=== PATIENT | male | born 1955 | race African-American/Black ===

== ENCOUNTER 2018-04-11 18:24 | Inpatient (IN) | payer MEDICAID ==
[~2018-04-11] VITALS: Ht 170.2 cm; Wt 72.3 kg
[2018-04-11 19:38] LABS: HEMATOCRIT. 24.4 % (42.0-52.0); HEMOGLOBIN. 7.9 g/dL (14.0-18.0); MEAN CORPUSCULAR HEMOGLOBIN 27.7 pg (28.0-32.0); MEAN CORPUSCULAR VOLUME 85.2 fL (80.0-94.0); RED BLOOD CELL COUNT 2.86 mill/uL (4.7-6.1); RED CELL DISTRIBUTION WIDTH 18.6 % (11.6-14.6)
[2018-04-11 19:42] LABS: CHLORIDE 96 mEq/L (98-107); INR 1.4; PROTHROMBIN TIME 14.1 sec (9.1-11.1)
[2018-04-11] MEDS ORDERED: ADENOSINE 3 MG/ML 2ML VIAL IV ONE ×2 (19:45→19:51)
[2018-04-11] MEDS ORDERED: LORAZEPAM 2MG/ML CPJ IV ONE (20:00)
[2018-04-11 20:06] LABS: MEAN PLATELET VOLUME 9.4 fl (7.4-10.4)
[2018-04-11 20:08] LABS: PLATELET ESTIMATE MARKEDLY DECREASED
[2018-04-11] MEDS ORDERED: LEVOFLOXACIN 750MG PREMIX 150 ML IV ONE (20:30)
[2018-04-11] MEDS ORDERED: POTASSIUM CHLORIDE 20MEQ TABLET SR PO ONE ×2 (21:00→21:30)
[2018-04-11] MEDS ORDERED: PIPERACILLIN/TAZ 3.375G PREMIX 50 ML IV SCH (21:30)
[2018-04-11] MEDS ORDERED: CLONIDINE 0.1MG TABLET PO PRN (21:30)
[2018-04-11] MEDS ORDERED: DOCUSATE SODIUM 100MG CAPSULE PO PRN (21:30)
[2018-04-11] MEDS ORDERED: ACETAMINOPHEN 325MG TABLET PO PRN (21:30)
[2018-04-11] MEDS ORDERED: ONDANSETRON HCL 4MG/2ML VIAL IV PRN (21:30)
[2018-04-11] MEDS ORDERED: NITROGLYCERIN 0.4MG TABLET SL SL PRN (21:30)
[2018-04-11] MEDS ORDERED: KETOROLAC 15MG/ML VIAL IV PRN (21:30)
[2018-04-11] MEDS ORDERED: NA PHOS,M-B/NA PHOS,DI-BA ENEMA 118ML PR PRN (21:30)
[2018-04-11] MEDS ORDERED: MAGNESIUM/ALUMINUM HYDROXIDE/SIMETHICONE 30ML UDC PO PRN (21:30)
[2018-04-11 21:50] LABS: LDL CHOLESTEROL 22 mg/dL (5-100)
[2018-04-11 21:52] LABS: HDL CHOLESTEROL 7 mg/dL (40-59)
[2018-04-11 22:34] VITALS: BP 87/50
[2018-04-11 23:00] VITALS: BP 87/50
[2018-04-11] MEDS ORDERED: SODIUM CHLORIDE 0.9% 1,000 ML IV SCH (23:00)
[2018-04-11] MEDS ORDERED: NOREPINEPHRINE 4 MG in DEXT 5% WATER 246 ML IV PRN (23:15)
[2018-04-11 23:17] LABS: CREATINE KINASE 26 IU/L (39-308)
[2018-04-11 23:19] LABS: CREATINE KINASE MB FRACTION < 1.0 ng/mL (0.5-3.6)
[2018-04-11 23:30] VITALS: BP 86/51
[2018-04-11 23:38] VITALS: BP 91/53
[2018-04-11] MEDS: SODIUM CHLORIDE 0.9% 1,000 ML IV SCH (23:42)
[2018-04-12] VITALS (49 sets, daily range): BP systolic 76–131; BP diastolic 43–79
[2018-04-12] MEDS ORDERED: VANCOMYCIN 1 G PREMIX 200 ML IV NR
[2018-04-12] MEDS: PIPERACILLIN/TAZ 3.375G PREMIX 50 ML IV SCH ×4 (01:01→21:15)
[2018-04-12] MEDS: ALBUMIN HUMAN 25GM/100ML (25%) IV SCH ×3 (02:21→17:57)
[2018-04-12] MEDS: GUAIFENESIN 200MG/10ML SUGAR FREE UDC PO PRN ×2 (03:19→23:54)
[2018-04-12] MEDS: IPRATROPIUM/ALBUTEROL 0.5-3(2.5)MG/3ML NEB INH PRN ×2 (04:16→12:10)
[2018-04-12 05:43] LABS: CREATINE KINASE 30 IU/L (39-308)
[2018-04-12 05:45] LABS: CREATINE KINASE MB FRACTION < 1.0 ng/mL (0.5-3.6)
[2018-04-12] MEDS: DILTIAZEM HCL 60MG TABLET PO SCH ×2 (06:00)
[2018-04-12 08:07] LABS: MEAN CORPUSCULAR HEMOGLOBIN 28.3 pg (28.0-32.0); MEAN CORPUSCULAR VOLUME 84.8 fL (80.0-94.0); MEAN PLATELET VOLUME 8.6 fl (7.4-10.4); RED BLOOD CELL COUNT 2.39 mill/uL (4.7-6.1); RED CELL DISTRIBUTION WIDTH 18.4 % (11.6-14.6)
[2018-04-12 08:08] LABS: CHLORIDE 98 mEq/L (98-107)
[2018-04-12 08:19] LABS: HEMATOCRIT. 20.3 % (42.0-52.0); HEMOGLOBIN. 6.8 g/dL (14.0-18.0)
[2018-04-12] MEDS ORDERED: ASPIRIN 325MG EC TABLET PO SCH (09:00)
[2018-04-12] MEDS: FAMOTIDINE 20MG TABLET PO SCH ×2 (09:46→21:15)
[2018-04-12] MEDS: ASCORBIC ACID 500 MG TABLET PO SCH ×2 (09:47→21:15)
[2018-04-12] MEDS: VANCOMYCIN 1250MG in DEXTROSE 5% WATER 250ML IV SCH ×2 (09:47→21:15)
[2018-04-12 10:06] LABS: PLATELET 22 x1000/uL (130-400); PLATELET ESTIMATE MARKEDLY DECREASED
[2018-04-12] MEDS ORDERED: LORAZEPAM 2MG/ML CPJ IV PRN (11:45)
[2018-04-12] MEDS: HYDROMORPHONE HCL/PF 2MG/ML CPJ IV PRN ×3 (11:53→18:03)
[2018-04-12 12:02] LABS: HEPATITIS B SURFACE ANTIGEN NEGATIVE
[2018-04-12 12:30] LABS: HEPATITIS B CORE AB IGM NEGATIVE
[2018-04-12 12:31] LABS: HEPATITIS A AB IGM NEGATIVE (NEGATIVE)
[2018-04-12] MEDS: DIPHENHYDRAMINE 50MG/ML VIAL IV PRN ×3 (12:52→23:22)
[2018-04-12 13:28] LABS: PLATELET 40 x1000/uL (130-400)
[2018-04-12] MEDS: DILTIAZEM HCL 30MG TABLET PO SCH ×2 (14:30→22:00)
[2018-04-12 17:22] LABS: HEMATOCRIT 24.5 % (42.0-52.0); HEMOGLOBIN 8.2 g/dL (14.0-18.0)
[2018-04-12] MEDS: SODIUM HYPOCHLORITE 0.125% 473ML SOLUTION TOP SCH (21:14)
[2018-04-12] MEDS: ZOLPIDEM TARTRATE 5MG TABLET PO PRN (21:15)
[2018-04-12] MEDS: SODIUM CHLORIDE 0.9% 1,000 ML IV SCH (21:17)
[2018-04-13] VITALS (31 sets, daily range): BP systolic 96–138; BP diastolic 50–88
[2018-04-13] MEDS: IPRATROPIUM/ALBUTEROL 0.5-3(2.5)MG/3ML NEB INH PRN
[2018-04-13 05:45] LABS: HEMATOCRIT. 22.8 % (42.0-52.0); HEMOGLOBIN. 7.5 g/dL (14.0-18.0); MEAN CORPUSCULAR HEMOGLOBIN 27.8 pg (28.0-32.0); MEAN CORPUSCULAR VOLUME 83.9 fL (80.0-94.0); MEAN PLATELET VOLUME 9.2 fl (7.4-10.4); RED BLOOD CELL COUNT 2.71 mill/uL (4.7-6.1); RED CELL DISTRIBUTION WIDTH 18.1 % (11.6-14.6)
[2018-04-13 05:52] LABS: CHLORIDE 99 mEq/L (98-107)
[2018-04-13] MEDS: DILTIAZEM HCL 30MG TABLET PO SCH ×3 (06:00→20:51)
[2018-04-13] MEDS: SODIUM HYPOCHLORITE 0.125% 473ML SOLUTION TOP SCH ×2 (06:05→18:14)
[2018-04-13] MEDS: PIPERACILLIN/TAZ 3.375G PREMIX 50 ML IV SCH ×3 (06:05→20:51)
[2018-04-13 06:22] LABS: PLATELET 23 x1000/uL (130-400)
[2018-04-13] MEDS: FAMOTIDINE 20MG TABLET PO SCH ×2 (09:21→20:51)
[2018-04-13] MEDS: ASCORBIC ACID 500 MG TABLET PO SCH ×2 (09:21→20:50)
[2018-04-13] MEDS: GUAIFENESIN 200MG/10ML SUGAR FREE UDC PO PRN (09:21)
[2018-04-13] MEDS: GUAIFENESIN 600MG ER TABLET PO SCH ×2 (09:21→20:50)
[2018-04-13] MEDS: VANCOMYCIN 1250MG in DEXTROSE 5% WATER 250ML IV SCH ×2 (09:21→20:51)
[2018-04-13 10:08] LABS: HIV SCREEN 4G Non Reactive (Non Reactive)
[2018-04-13] MEDS ORDERED: FUROSEMIDE 40MG/4ML VIAL IVP NR (10:30)
[2018-04-13] MEDS: SODIUM CHLORIDE 0.9% 1,000 ML IV SCH ×2 (11:00→15:08)
[2018-04-13 11:13] LABS: PLATELET ESTIMATE MARKEDLY INCREASED
[2018-04-13] MEDS: HYDROMORPHONE HCL/PF 2MG/ML CPJ IV PRN ×2 (12:18→21:05)
[2018-04-13] MEDS: IPRATROPIUM BROMIDE (0.02%) 0.5MG/2.5ML NEB HHN SCH ×2 (12:28→20:50)
[2018-04-13 14:23] LABS: CLARITY URINE CLEAR (CLEAR); COLOR URINE YELLOW (YELLOW); KETONES URINE NEGATIVE (NEGATIVE); LEUKOCYTE ESTERASE URINE NEGATIVE (NEGATIVE); NITRITE URINE NEGATIVE (NEGATIVE); OCCULT BLOOD URINE NEGATIVE (NEGATIVE); PH URINE 6.5 (4.5-8.0); PROTEIN URINE TRACE (NEGATIVE); SPECIFIC GRAVITY URINE 1.016 (1.005-1.030)
[2018-04-13 15:09] LABS: *AMPHETAMINES SCREEN URINE NEGATIVE (NEGATIVE)
[2018-04-13 15:10] LABS: *BARBITURATES SCREEN URINE NEGATIVE (NEGATIVE); *COCAINE SCREEN URINE NEGATIVE (NEGATIVE); CANNABINOID URINE SCREEN NEGATIVE (NEGATIVE); PHENCYCLIDINE URINE SCREEN NEGATIVE (NEGATIVE)
[2018-04-13 15:11] LABS: *BENZODIAZEPINES SCREEN URINE NEGATIVE (NEGATIVE); METHADONE URINE SCREEN NEGATIVE (NEGATIVE); OPIATES URINE SCREEN PRESUMTIVE POSITIVE (NEGATIVE)
[2018-04-14] VITALS (13 sets, daily range): BP systolic 77–137; BP diastolic 43–84
[2018-04-14] MEDS: HYDROMORPHONE HCL/PF 2MG/ML CPJ IV PRN ×4 (00:37→20:48)
[2018-04-14] MEDS: IPRATROPIUM BROMIDE (0.02%) 0.5MG/2.5ML NEB HHN SCH ×4 (02:00→20:46)
[2018-04-14] MEDS: PIPERACILLIN/TAZ 3.375G PREMIX 50 ML IV SCH ×4 (02:10→20:46)
[2018-04-14] MEDS: ZOLPIDEM TARTRATE 5MG TABLET PO PRN ×2 (02:16→20:47)
[2018-04-14] MEDS: SODIUM HYPOCHLORITE 0.125% 473ML SOLUTION TOP SCH ×2 (04:55→18:00)
[2018-04-14] MEDS: DILTIAZEM HCL 30MG TABLET PO SCH (05:23)
[2018-04-14 07:20] LABS: HEMATOCRIT. 26.2 % (42.0-52.0); HEMOGLOBIN. 8.6 g/dL (14.0-18.0); MEAN CORPUSCULAR HEMOGLOBIN 27.8 pg (28.0-32.0); MEAN CORPUSCULAR VOLUME 84.6 fL (80.0-94.0); MEAN PLATELET VOLUME 9.1 fl (7.4-10.4); RED BLOOD CELL COUNT 3.09 mill/uL (4.7-6.1); RED CELL DISTRIBUTION WIDTH 17.7 % (11.6-14.6)
[2018-04-14 07:27] LABS: PLATELET 21 x1000/uL (130-400)
[2018-04-14 08:15] LABS: CHLORIDE 97 mEq/L (98-107)
[2018-04-14] MEDS: GUAIFENESIN 600MG ER TABLET PO SCH ×2 (08:20→20:53)
[2018-04-14] MEDS: METOPROLOL TARTRATE 25MG TABLET PO SCH ×2 (08:20→21:00)
[2018-04-14] MEDS: FAMOTIDINE 20MG TABLET PO SCH ×2 (08:20→20:47)
[2018-04-14] MEDS: ASCORBIC ACID 500 MG TABLET PO SCH ×2 (08:20→20:47)
[2018-04-14] MEDS: FUROSEMIDE 20MG/2ML VIAL IVP SCH (08:21)
[2018-04-14] MEDS: VANCOMYCIN 1250MG in DEXTROSE 5% WATER 250ML IV SCH ×2 (09:25→21:49)
[2018-04-14 09:43] LABS: PLATELET ESTIMATE MARKEDLY DECREASED
[2018-04-14] MEDS: GUAIFENESIN 200MG/10ML SUGAR FREE UDC PO PRN (20:46)
[2018-04-15] VITALS (12 sets, daily range): BP systolic 87–102; BP diastolic 45–60
[2018-04-15] MEDS: IPRATROPIUM BROMIDE (0.02%) 0.5MG/2.5ML NEB HHN SCH ×4 (01:34→20:44)
[2018-04-15] MEDS: PIPERACILLIN/TAZ 3.375G PREMIX 50 ML IV SCH ×4 (01:39→20:23)
[2018-04-15] MEDS: DIPHENHYDRAMINE 50MG/ML VIAL IV PRN ×2 (01:49→22:17)
[2018-04-15] MEDS: TRAMADOL 50MG TABLET PO PRN (01:51)
[2018-04-15] MEDS: SODIUM HYPOCHLORITE 0.125% 473ML SOLUTION TOP SCH ×2 (05:48→17:37)
[2018-04-15 07:44] LABS: HEMATOCRIT. 25.5 % (42.0-52.0); HEMOGLOBIN. 8.5 g/dL (14.0-18.0); MEAN CORPUSCULAR HEMOGLOBIN 27.9 pg (28.0-32.0); MEAN PLATELET VOLUME 8.5 fl (7.4-10.4); RED BLOOD CELL COUNT 3.04 mill/uL (4.7-6.1); RED CELL DISTRIBUTION WIDTH 17.6 % (11.6-14.6)
[2018-04-15 08:17] LABS: CHLORIDE 96 mEq/L (98-107)
[2018-04-15 08:19] LABS: PLATELET 20 x1000/uL (130-400)
[2018-04-15] MEDS: FUROSEMIDE 20MG/2ML VIAL IVP SCH ×2 (08:26→09:20)
[2018-04-15] MEDS: FAMOTIDINE 20MG TABLET PO SCH ×2 (08:26→20:54)
[2018-04-15] MEDS: ASCORBIC ACID 500 MG TABLET PO SCH ×2 (08:26→20:55)
[2018-04-15] MEDS: GUAIFENESIN 600MG ER TABLET PO SCH ×2 (08:26→20:54)
[2018-04-15] MEDS: METOPROLOL TARTRATE 25MG TABLET PO SCH ×2 (08:27→20:48)
[2018-04-15] MEDS: VANCOMYCIN 1250MG in DEXTROSE 5% WATER 250ML IV SCH ×2 (08:27→21:08)
[2018-04-15 17:48] LABS: ATYPICAL LYMPHOCYTES 1
[2018-04-15 17:49] LABS: PLATELET ESTIMATE MARKEDLY DECREASED
[2018-04-15] MEDS: HYDROMORPHONE HCL/PF 2MG/ML CPJ IV PRN (18:00)
[2018-04-15] MEDS: ZOLPIDEM TARTRATE 5MG TABLET PO PRN (20:54)
[2018-04-15] MEDS: GUAIFENESIN 200MG/10ML SUGAR FREE UDC PO PRN (21:50)
[2018-04-16] VITALS (12 sets, daily range): BP systolic 86–107; BP diastolic 47–67
[2018-04-16] MEDS: IPRATROPIUM BROMIDE (0.02%) 0.5MG/2.5ML NEB HHN SCH ×4 (01:06→20:29)
[2018-04-16] MEDS: PIPERACILLIN/TAZ 3.375G PREMIX 50 ML IV SCH ×4 (01:26→21:07)
[2018-04-16] MEDS: HYDROMORPHONE HCL/PF 2MG/ML CPJ IV PRN ×2 (05:44→09:49)
[2018-04-16] MEDS: SODIUM HYPOCHLORITE 0.125% 473ML SOLUTION TOP SCH ×2 (05:48→18:49)
[2018-04-16] MEDS: METOPROLOL TARTRATE 25MG TABLET PO SCH ×2 (09:00→20:50)
[2018-04-16] MEDS: FAMOTIDINE 20MG TABLET PO SCH ×2 (09:31→21:07)
[2018-04-16] MEDS: GUAIFENESIN 200MG/10ML SUGAR FREE UDC PO PRN (09:31)
[2018-04-16] MEDS: ASCORBIC ACID 500 MG TABLET PO SCH ×2 (09:31→21:07)
[2018-04-16] MEDS: VANCOMYCIN 1250MG in DEXTROSE 5% WATER 250ML IV SCH ×2 (09:47→21:52)
[2018-04-16] MEDS: GUAIFENESIN 600MG ER TABLET PO SCH ×2 (09:47→21:07)
[2018-04-16] MEDS ORDERED: MAGNESIUM SULFATE 2 GM in DEXTROSE 5% WATER 50 ML IV NR (17:00)
[2018-04-16] MEDS: ZOLPIDEM TARTRATE 5MG TABLET PO PRN (21:07)
[2018-04-16] MEDS: TRAMADOL 50MG TABLET PO PRN (21:07)
[2018-04-17] VITALS (13 sets, daily range): BP systolic 88–114; BP diastolic 51–70
[2018-04-17] MEDS: PIPERACILLIN/TAZ 3.375G PREMIX 50 ML IV SCH ×4 (01:58→22:05)
[2018-04-17] MEDS: IPRATROPIUM BROMIDE (0.02%) 0.5MG/2.5ML NEB HHN SCH ×4 (02:00→21:12)
[2018-04-17] MEDS: DIPHENHYDRAMINE 50MG/ML VIAL IV PRN ×2 (05:13→15:23)
[2018-04-17] MEDS: SODIUM HYPOCHLORITE 0.125% 473ML SOLUTION TOP SCH ×2 (06:00→18:00)
[2018-04-17] MEDS: GUAIFENESIN 600MG ER TABLET PO SCH ×2 (08:51→20:37)
[2018-04-17] MEDS: ASCORBIC ACID 500 MG TABLET PO SCH ×3 (08:51→20:37)
[2018-04-17] MEDS: FUROSEMIDE 20MG/2ML VIAL IVP SCH ×2 (08:51→09:00)
[2018-04-17] MEDS: FAMOTIDINE 20MG TABLET PO SCH ×2 (08:51→20:37)
[2018-04-17] MEDS: METOPROLOL TARTRATE 25MG TABLET PO SCH ×2 (08:52→20:41)
[2018-04-17] MEDS: VANCOMYCIN 1250MG in DEXTROSE 5% WATER 250ML IV SCH ×2 (08:58→22:05)
[2018-04-17] MEDS ORDERED: KETOROLAC 15MG/ML VIAL IV PRN (18:30)
[2018-04-17] MEDS ORDERED: ZOLPIDEM TARTRATE 5MG TABLET PO PRN (18:30)
[2018-04-17] MEDS: TRAMADOL 50MG TABLET PO PRN (20:41)
[2018-04-18] VITALS (12 sets, daily range): BP systolic 93–114; BP diastolic 48–76
[2018-04-18] MEDS: IPRATROPIUM BROMIDE (0.02%) 0.5MG/2.5ML NEB HHN SCH ×5 (01:09→23:00)
[2018-04-18] MEDS: PIPERACILLIN/TAZ 3.375G PREMIX 50 ML IV SCH ×4 (03:14→20:03)
[2018-04-18] MEDS: SODIUM HYPOCHLORITE 0.125% 473ML SOLUTION TOP SCH ×2 (05:12→18:00)
[2018-04-18] MEDS: DIPHENHYDRAMINE 50MG/ML VIAL IV PRN (05:13)
[2018-04-18 06:26] LABS: HEMATOCRIT. 25.7 % (42.0-52.0); HEMOGLOBIN. 8.7 g/dL (14.0-18.0); MEAN CORPUSCULAR HEMOGLOBIN 28.7 pg (28.0-32.0); MEAN CORPUSCULAR VOLUME 84.6 fL (80.0-94.0); MEAN PLATELET VOLUME 8.7 fl (7.4-10.4); RED BLOOD CELL COUNT 3.03 mill/uL (4.7-6.1)
[2018-04-18 06:30] LABS: PLATELET 24 x1000/uL (130-400)
[2018-04-18 06:33] LABS: CHLORIDE 100 mEq/L (98-107)
[2018-04-18] MEDS: FAMOTIDINE 20MG TABLET PO SCH ×2 (08:11→20:02)
[2018-04-18] MEDS: GUAIFENESIN 600MG ER TABLET PO SCH ×2 (08:11→20:02)
[2018-04-18] MEDS: ASCORBIC ACID 500 MG TABLET PO SCH ×2 (08:11→20:02)
[2018-04-18] MEDS: VANCOMYCIN 1250MG in DEXTROSE 5% WATER 250ML IV SCH ×2 (08:12→20:03)
[2018-04-18] MEDS: METOPROLOL TARTRATE 25MG TABLET PO SCH ×2 (08:23→20:03)
[2018-04-18] MEDS: FUROSEMIDE 20MG/2ML VIAL IVP SCH (08:23)
[2018-04-18 12:51] LABS: BG BASE EXCESS 3.4 mmol/L (-2.0-2.0); BG CARBOXYHEMOGLOBIN 0.8 % (0.5-1.5); BG DEOXYHEMOGLOBIN 4.6 % (0.0-5.0); BG FRACTION INSPIRED OXYGEN 32; BG HCO3 ACT 27.3 mmol/L (22.0-26.0); BG METHEMOGLOBIN 0.4 % (0.0-1.5); BG OXYGEN SATURATION 95.3 % (92.0-98.5); BG OXYHEMOGLOBIN 94.2 % (94.0-97.0); BG PCO2 38.7 mmHg (35.0-45.0); BG PH 7.467 (7.350-7.450); BG PO2 80.5 mmHg (75.0-100.0); BG SAMPLE SITE LEFT BRACHIAL; BG TOTAL HEMOGLOBIN 7.7 g/dL (12.0-18.0); BG VENT MODE NASAL CANNULA
[2018-04-18] MEDS ORDERED: POTASSIUM CHLORIDE 20MEQ TABLET SR PO SCH (14:00)
[2018-04-18] MEDS: TRAMADOL 50MG TABLET PO PRN (14:24)
[2018-04-18] MEDS ORDERED: TRAMADOL 50MG TABLET PO PRN (16:45)
[2018-04-18] MEDS ORDERED: HYDROMORPHONE HCL/PF 2MG/ML CPJ IV PRN (16:45)
[2018-04-18] MEDS ORDERED: LORAZEPAM 2MG/ML CPJ IV PRN (16:45)
[2018-04-18] MEDS ORDERED: KETOROLAC 15MG/ML VIAL IV PRN (16:45)
[2018-04-18 19:44] LABS: PLATELET ESTIMATE MARKEDLY DECREASED
[2018-04-18] MEDS ORDERED: ZOLPIDEM TARTRATE 5MG TABLET PO PRN (21:00)
[2018-04-18] MEDS: GUAIFENESIN 200MG/10ML SUGAR FREE UDC PO PRN (22:39)
[2018-04-18] MEDS: ZOLPIDEM TARTRATE 5MG TABLET PO PRN (22:40)
[2018-04-19] VITALS (18 sets, daily range): BP systolic 89–111; BP diastolic 43–66
[2018-04-19] MEDS: IPRATROPIUM BROMIDE (0.02%) 0.5MG/2.5ML NEB HHN SCH ×4 (00:59→21:00)
[2018-04-19] MEDS: SODIUM HYPOCHLORITE 0.125% 473ML SOLUTION TOP SCH ×2 (06:46→18:00)
[2018-04-19] MEDS: FUROSEMIDE 20MG/2ML VIAL IVP SCH (08:32)
[2018-04-19] MEDS: FAMOTIDINE 20MG TABLET PO SCH ×2 (08:32→20:28)
[2018-04-19] MEDS: GUAIFENESIN 600MG ER TABLET PO SCH ×2 (08:32→20:28)
[2018-04-19] MEDS: ASCORBIC ACID 500 MG TABLET PO SCH ×2 (08:32→20:28)
[2018-04-19] MEDS: METOPROLOL TARTRATE 25MG TABLET PO SCH ×2 (08:33→20:28)
[2018-04-19] MEDS: TRAMADOL 50MG TABLET PO PRN ×2 (13:03→23:01)
[2018-04-19] MEDS: ZOLPIDEM TARTRATE 5MG TABLET PO PRN (22:34)
[2018-04-20] VITALS (16 sets, daily range): BP systolic 78–129; BP diastolic 45–76
[2018-04-20] MEDS: IPRATROPIUM BROMIDE (0.02%) 0.5MG/2.5ML NEB HHN SCH ×4 (00:57→14:51)
[2018-04-20] MEDS: DIPHENHYDRAMINE 50MG/ML VIAL IV PRN ×2 (03:11→12:12)
[2018-04-20] MEDS: SODIUM HYPOCHLORITE 0.125% 473ML SOLUTION TOP SCH ×3 (03:13→17:13)
[2018-04-20] MEDS: METOPROLOL TARTRATE 25MG TABLET PO SCH ×2 (08:35→21:00)
[2018-04-20] MEDS: FAMOTIDINE 20MG TABLET PO SCH ×2 (08:43→22:17)
[2018-04-20] MEDS: ASCORBIC ACID 500 MG TABLET PO SCH ×2 (08:43→22:17)
[2018-04-20] MEDS: FUROSEMIDE 20MG/2ML VIAL IVP SCH (08:43)
[2018-04-20] MEDS: GUAIFENESIN 600MG ER TABLET PO SCH ×2 (08:43→22:17)
[2018-04-20] MEDS: TRAMADOL 50MG TABLET PO PRN (12:05)
[2018-04-20] MEDS ORDERED: DIGOXIN 500MCG/2ML AMP IV SCH (18:45)
[2018-04-20] MEDS ORDERED: VERAPAMIL HCL 2.5 MG/1 ML 2ML VIAL IV SCH (19:00)
[2018-04-20] MEDS ORDERED: AMIODARONE HCL 900 MG in DEXT 5% WATER 482 ML IV ONE (21:00)
[2018-04-20] MEDS ORDERED: DIGOXIN 500MCG/2ML AMP IV NR (21:02)
[2018-04-20] MEDS ORDERED: AMIODARONE HCL 900 MG in DEXT 5% WATER 482 ML IV PRN (21:30)
[2018-04-20] MEDS ORDERED: AMIODARONE HCL 150 MG in DEXT 5% WATER 100 ML IV NR (21:45)
[2018-04-21] VITALS (37 sets, daily range): BP systolic 86–118; BP diastolic 49–68
[2018-04-21] MEDS: SODIUM HYPOCHLORITE 0.125% 473ML SOLUTION TOP SCH ×2 (06:00→17:09)
[2018-04-21 06:26] LABS: CHLORIDE 100 mEq/L (98-107)
[2018-04-21 07:09] LABS: MEAN CORPUSCULAR HEMOGLOBIN 27.7 pg (28.0-32.0); MEAN CORPUSCULAR VOLUME 84.1 fL (80.0-94.0); MEAN PLATELET VOLUME 8.5 fl (7.4-10.4); RED BLOOD CELL COUNT 2.27 mill/uL (4.7-6.1); RED CELL DISTRIBUTION WIDTH 17.7 % (11.6-14.6)
[2018-04-21 07:11] LABS: CREATINE KINASE MB FRACTION < 1.0 ng/mL (0.5-3.6)
[2018-04-21] MEDS: IPRATROPIUM BROMIDE (0.02%) 0.5MG/2.5ML NEB HHN SCH ×3 (07:49→20:00)
[2018-04-21] MEDS: GUAIFENESIN 600MG ER TABLET PO SCH ×2 (08:52→20:52)
[2018-04-21] MEDS: FUROSEMIDE 20MG/2ML VIAL IVP SCH (08:56)
[2018-04-21] MEDS: METOPROLOL TARTRATE 25MG TABLET PO SCH (08:56)
[2018-04-21] MEDS: FAMOTIDINE 20MG TABLET PO SCH ×2 (08:56→20:52)
[2018-04-21] MEDS: ASCORBIC ACID 500 MG TABLET PO SCH ×2 (08:56→20:52)
[2018-04-21 09:23] LABS: HEMOGLOBIN. 6.3 g/dL (14.0-18.0)
[2018-04-21 09:24] LABS: HEMATOCRIT. 19.1 % (42.0-52.0); PLATELET 33 x1000/uL (130-400)
[2018-04-21] MEDS ORDERED: POTASSIUM CHLORIDE 20MEQ TABLET SR PO NR (10:00)
[2018-04-21] MEDS ORDERED: DILTIAZEM HCL 125 MG in DEXT 5% WATER 100 ML IV PRN (10:15)
[2018-04-21] MEDS ORDERED: DIGOXIN 500MCG/2ML AMP IV NR (10:15)
[2018-04-21] MEDS ORDERED: SODIUM CHLORIDE 0.9% 500 ML IV ONE ×3 (10:15→12:00)
[2018-04-21] MEDS ORDERED: DILTIAZEM HCL 5MG/ML 5ML VIAL IV NR (10:15)
[2018-04-21 10:25] LABS: PLATELET ESTIMATE MARKEDLY DECREASED
[2018-04-21 11:10] LABS: TOTAL IRON BINDING CAPACITY 89 ug/dL (250-450)
[2018-04-21] MEDS ORDERED: AMIODARONE HCL 900 MG in DEXT 5% WATER 482 ML IV SCH (11:30)
[2018-04-21] MEDS: SODIUM CHLORIDE 0.9% 1,000 ML IV SCH (11:30)
[2018-04-21] MEDS ORDERED: DIGOXIN 500MCG/2ML AMP IV PRN ×2 (16:00→19:15)
[2018-04-21] MEDS: AMIODARONE HCL 200 MG TABLET PO SCH ×2 (16:58→20:54)
[2018-04-21] MEDS: ZOLPIDEM TARTRATE 5MG TABLET PO PRN (20:52)
[2018-04-21 21:29] LABS: HEMATOCRIT 26.6 % (42.0-52.0); HEMOGLOBIN 8.8 g/dL (14.0-18.0)
[2018-04-21 21:32] LABS: INR 1.3; PROTHROMBIN TIME 12.7 sec (9.1-11.1)
[2018-04-22] VITALS (12 sets, daily range): BP systolic 95–106; BP diastolic 55–71
[2018-04-22] MEDS: SODIUM CHLORIDE 0.9% 1,000 ML IV SCH ×2 (00:24→14:52)
[2018-04-22 01:30] LABS: HEMATOCRIT 26.4 % (42.0-52.0); HEMOGLOBIN 8.9 g/dL (14.0-18.0)
[2018-04-22] MEDS: IPRATROPIUM BROMIDE (0.02%) 0.5MG/2.5ML NEB HHN SCH ×4 (02:00→21:00)
[2018-04-22] MEDS: SODIUM HYPOCHLORITE 0.125% 473ML SOLUTION TOP SCH ×2 (06:00→17:51)
[2018-04-22 06:13] LABS: HEMATOCRIT. 27.8 % (42.0-52.0); HEMOGLOBIN. 9.3 g/dL (14.0-18.0); MEAN CORPUSCULAR HEMOGLOBIN 28.4 pg (28.0-32.0); MEAN CORPUSCULAR VOLUME 85.3 fL (80.0-94.0); MEAN PLATELET VOLUME 8.7 fl (7.4-10.4); RED BLOOD CELL COUNT 3.26 mill/uL (4.7-6.1); RED CELL DISTRIBUTION WIDTH 17.2 % (11.6-14.6)
[2018-04-22 06:33] LABS: CHLORIDE 104 mEq/L (98-107)
[2018-04-22 06:41] LABS: PLATELET 39 x1000/uL (130-400)
[2018-04-22] MEDS: AMIODARONE HCL 200 MG TABLET PO SCH ×2 (08:18→21:39)
[2018-04-22] MEDS: GUAIFENESIN 600MG ER TABLET PO SCH ×2 (08:18→21:39)
[2018-04-22] MEDS: FAMOTIDINE 20MG TABLET PO SCH ×2 (08:18→21:39)
[2018-04-22] MEDS: ASCORBIC ACID 500 MG TABLET PO SCH ×2 (08:18→21:39)
[2018-04-22 10:42] LABS: PLATELET ESTIMATE MARKEDLY DECREASED
[2018-04-22] MEDS ORDERED: POTASSIUM CHLORIDE 20MEQ TABLET SR PO NR (14:15)
[2018-04-22] MEDS: TRAMADOL 50MG TABLET PO PRN (18:16)
[2018-04-22] MEDS ORDERED: ZOLPIDEM TARTRATE 5MG TABLET PO PRN (19:45)
[2018-04-22] MEDS ORDERED: KETOROLAC 15MG/ML VIAL IV PRN (19:45)
[2018-04-23] VITALS (12 sets, daily range): BP systolic 91–108; BP diastolic 58–70
[2018-04-23] MEDS: IPRATROPIUM BROMIDE (0.02%) 0.5MG/2.5ML NEB HHN SCH ×3 (02:00→20:40)
[2018-04-23] MEDS: SODIUM CHLORIDE 0.9% 1,000 ML IV SCH ×2 (03:13→17:24)
[2018-04-23] MEDS: TRAMADOL 50MG TABLET PO PRN (05:35)
[2018-04-23] MEDS: SODIUM HYPOCHLORITE 0.125% 473ML SOLUTION TOP SCH ×2 (05:35→17:24)
[2018-04-23 07:13] LABS: HEMATOCRIT. 27.9 % (42.0-52.0); HEMOGLOBIN. 9.4 g/dL (14.0-18.0); MEAN CORPUSCULAR HEMOGLOBIN 28.6 pg (28.0-32.0); MEAN CORPUSCULAR VOLUME 85.2 fL (80.0-94.0); MEAN PLATELET VOLUME 8.8 fl (7.4-10.4); RED BLOOD CELL COUNT 3.28 mill/uL (4.7-6.1); RED CELL DISTRIBUTION WIDTH 16.9 % (11.6-14.6)
[2018-04-23 07:19] LABS: CHLORIDE 102 mEq/L (98-107)
[2018-04-23 08:04] LABS: PLATELET 41 x1000/uL (130-400)
[2018-04-23] MEDS: AMIODARONE HCL 200 MG TABLET PO SCH ×2 (09:29→21:07)
[2018-04-23] MEDS: FAMOTIDINE 20MG TABLET PO SCH ×2 (09:29→21:08)
[2018-04-23] MEDS: ASCORBIC ACID 500 MG TABLET PO SCH ×2 (09:29→21:08)
[2018-04-23] MEDS: GUAIFENESIN 600MG ER TABLET PO SCH ×2 (09:29→21:08)
[2018-04-23] MEDS: DILTIAZEM HCL 30MG TABLET PO SCH ×2 (14:46→21:21)
[2018-04-23] MEDS: DIPHENHYDRAMINE 50MG/ML VIAL IV PRN (21:07)
[2018-04-24] VITALS (12 sets, daily range): BP systolic 85–131; BP diastolic 51–88
[2018-04-24] MEDS: IPRATROPIUM BROMIDE (0.02%) 0.5MG/2.5ML NEB HHN SCH ×4 (01:00→21:39)
[2018-04-24] MEDS: DILTIAZEM HCL 30MG TABLET PO SCH ×3 (05:00→20:57)
[2018-04-24] MEDS: SODIUM CHLORIDE 0.9% 1,000 ML IV SCH (05:17)
[2018-04-24] MEDS: ASCORBIC ACID 500 MG TABLET PO SCH ×2 (08:43→20:56)
[2018-04-24] MEDS: FAMOTIDINE 20MG TABLET PO SCH ×2 (08:43→20:55)
[2018-04-24] MEDS: AMIODARONE HCL 200 MG TABLET PO SCH ×2 (08:43→20:56)
[2018-04-24] MEDS: GUAIFENESIN 600MG ER TABLET PO SCH ×2 (08:43→20:55)
[2018-04-24 10:01] LABS: PLATELET ESTIMATE MARKEDLY DECREASED
[2018-04-24] MEDS: LEVOFLOXACIN 750MG PREMIX 150 ML IV SCH (16:13)
[2018-04-24] MEDS: DIPHENHYDRAMINE 50MG/ML VIAL IV PRN (21:14)
[2018-04-25] VITALS (10 sets, daily range): BP systolic 97–108; BP diastolic 59–73
[2018-04-25] MEDS: IPRATROPIUM BROMIDE (0.02%) 0.5MG/2.5ML NEB HHN SCH ×4 (01:30→20:25)
[2018-04-25] MEDS: TRAMADOL 50MG TABLET PO PRN ×3 (02:24→21:16)
[2018-04-25] MEDS: DIPHENHYDRAMINE 50MG/ML VIAL IV PRN ×2 (03:35→22:26)
[2018-04-25] MEDS: DILTIAZEM HCL 30MG TABLET PO SCH ×3 (06:00→22:26)
[2018-04-25] MEDS: AMIODARONE HCL 200 MG TABLET PO SCH ×2 (08:52→21:14)
[2018-04-25] MEDS: GUAIFENESIN 600MG ER TABLET PO SCH ×2 (08:52→21:14)
[2018-04-25] MEDS: FAMOTIDINE 20MG TABLET PO SCH ×2 (08:52→21:14)
[2018-04-25] MEDS: ASCORBIC ACID 500 MG TABLET PO SCH ×2 (08:52→21:14)
[2018-04-25] MEDS ORDERED: CHLORHEXIDINE 0.12% ORAL RINSE TOP PRN (13:45)
[2018-04-25] MEDS: LEVOFLOXACIN 750MG PREMIX 150 ML IV SCH (16:22)
[2018-04-26] VITALS (11 sets, daily range): BP systolic 97–114; BP diastolic 57–66
[2018-04-26] MEDS: IPRATROPIUM BROMIDE (0.02%) 0.5MG/2.5ML NEB HHN SCH ×2 (01:38→08:48)
[2018-04-26] MEDS: DILTIAZEM HCL 30MG TABLET PO SCH ×2 (05:37→14:48)
[2018-04-26] MEDS: TRAMADOL 50MG TABLET PO PRN (05:37)
[2018-04-26 06:30] LABS: HEMATOCRIT. 25.6 % (42.0-52.0); HEMOGLOBIN. 8.5 g/dL (14.0-18.0); MEAN CORPUSCULAR HEMOGLOBIN 28.4 pg (28.0-32.0); MEAN CORPUSCULAR VOLUME 85.2 fL (80.0-94.0); MEAN PLATELET VOLUME 8.3 fl (7.4-10.4); RED CELL DISTRIBUTION WIDTH 17.3 % (11.6-14.6)
[2018-04-26 06:51] LABS: CHLORIDE 103 mEq/L (98-107)
[2018-04-26 07:41] LABS: PLATELET 46 x1000/uL (130-400)
[2018-04-26] MEDS: GUAIFENESIN 600MG ER TABLET PO SCH (09:09)
[2018-04-26] MEDS: ASCORBIC ACID 500 MG TABLET PO SCH (09:09)
[2018-04-26] MEDS: AMIODARONE HCL 200 MG TABLET PO SCH (09:10)
[2018-04-26] MEDS: FAMOTIDINE 20MG TABLET PO SCH (09:10)
[2018-04-26] MEDS ORDERED: MAGNESIUM OXIDE 400MG TABLET PO SCH (13:45)
[2018-04-26 14:28] LABS: PLATELET ESTIMATE MARKEDLY DECREASED
[2018-04-26] MEDS ORDERED: MAGNESIUM 4 G PREMIX 100 ML IV SCH (15:00)
== END 2018-04-26 19:08 | DRG 720 ==
LOC: ER 18:24 → EDBD 21:14 → CVICU 21:14 → EDBEDREQTM 21:15 → EDBEDREQ 21:15 → EDBEDREQSVC 21:17 → ENRESERV 21:24 → 3WST 04-13 14:55
PROVIDERS: ADMIT Internal Medicine; ATTEND Internal Medicine
PROC: 5A2204Z Restoration of Cardiac Rhythm, Single (ICD-10-PCS; 2018-04-11)
PROC: 30233N1 Transfusion of Nonautologous Red Blood Cells into Peripheral Vein, Percutaneous Approach (ICD-10-PCS; principal; 2018-04-12)
DX: A41.9 Sepsis, unspecified organism (principal); J96.00 Acute respiratory failure, unspecified whether with hypoxia or hypercapnia; E43 Unspecified severe protein-calorie malnutrition; D61.818 Other pancytopenia; M31.31 Wegener's granulomatosis with renal involvement; C43.9 Malignant melanoma of skin, unspecified; J18.9 Pneumonia, unspecified organism; S02.40DA Maxillary fracture, left side, initial encounter for closed fracture; D68.9 Coagulation defect, unspecified; E87.1 Hypo-osmolality and hyponatremia; I50.30 Unspecified diastolic (congestive) heart failure; I48.92 Unspecified atrial flutter; E87.6 Hypokalemia; I47.1 Supraventricular tachycardia; G25.81 Restless legs syndrome; I48.91 Unspecified atrial fibrillation; N18.6 End stage renal disease; Z60.2 Problems related to living alone; G90.8 Other disorders of autonomic nervous system; D69.6 Thrombocytopenia, unspecified; S31.119A Laceration without foreign body of abdominal wall, unspecified quadrant without penetration into peritoneal cavity, initial encounter; W18.39XA Other fall on same level, initial encounter; C85.90 Non-Hodgkin lymphoma, unspecified, unspecified site; J44.9 Chronic obstructive pulmonary disease, unspecified; E11.22 Type 2 diabetes mellitus with diabetic chronic kidney disease; H53.9 Unspecified visual disturbance; Z87.01 Personal history of pneumonia (recurrent); Z87.891 Personal history of nicotine dependence; Z99.2 Dependence on renal dialysis; Y93.89 Activity, other specified; Y92.89 Other specified places as the place of occurrence of the external cause; Z92.21 Personal history of antineoplastic chemotherapy; Y99.8 Other external cause status; Z68.25 Body mass index [BMI] 25.0-25.9, adult
CPT/HCPCS: 36415; 36600; 71045; 80048; 80053; 80061; 80202; 80305; 81003; 82270; 82375; 82550; 82553; 82805; 83036; 83540; 83550; 83605; 83735; 83880; 84134; 84443; 84484; 85014; 85018; 85025; 85610; 86705; 86709; 86803; 86850; 86900; 86920; 87040; 87070; 87086; 87106; 87186; 87340; 93005; 93306; 93880; 93923; 93970; 94640; 96365; 96375; 97116; 97162; 97166; 99291; J0153; J0282; J1160; J1170; J1200; J1885; J1940; J1956; J2060; J2405; J2543; J3370; J3475; J3490; J7030; J7040; J7050; J7060; J7620; P9016; P9047